=== PATIENT | male | born 1995 | race Caucasian/White ===

== ENCOUNTER 2017-07-04 22:44 | Emergency (ER) | payer OTHER ==
[~2017-07-04] VITALS: Ht 177.8 cm; Wt 93.2 kg
[2017-07-04 22:47] VITALS: BP 126/74
--- NOTE | 2017-07-04 22:54 | NUR ---
PT TAKEN TO BED 3
--- NOTE | 2017-07-04 23:00 | NUR ---
PT CAME IN C/O FEELING DEPRESSED AND ANXIOUS AND HAVING EPIGASTRIC PAIN 8/10 WHEN GETTING ANXIOUS. 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 PT SAID HE HAS BEEN SEEN BY THERAPIST AND HAS BEEN TAKING ZYPREXA, FLUOXETINE, AND LORAZEPAM. HOWEVER, HE FEELS MORE ANXIOUS SINCE YESTERDAY AND HEARING VOICES SAYING WHAT ARE YOU DOING. HE DENIES OF HEARING VOICES TO HARM HIMSELF OR OTHERS. A&OX4. RR EVEN AND UNLABORED. S1 AND S2 HEARD. VSS. AFEBRILE. CAP REFILLS WITHIN 3 SEC. NO ACUTE DISTRESS NOTED. ER MD MADE AWARE.
--- NOTE | 2017-07-04 23:02 | NUR ---
Dr. Coy evaluating patient at bedside.
[2017-07-04] MEDS ORDERED: LORazepam 2 MG/ML VIAL IM ONE (23:20)
--- NOTE | 2017-07-04 23:29 | NUR ---
ATIVAN ADMINISTERED ORDERED. WILL CONTINUE TO MONITOR.
--- NOTE | 2017-07-04 23:38 | NUR ---
PT STATED HE FEELS MUCH BETTER AFTER THE MEDICATION.
[2017-07-04 23:40] VITALS: BP 126/78
== END 2017-07-04 23:40 | disposition home or self-care (01) ==
LOC: MED 22:44
DX: F41.9 Anxiety disorder, unspecified (principal); F32.9 Major depressive disorder, single episode, unspecified; F25.9 Schizoaffective disorder, unspecified
CPT/HCPCS: 96372; 99284; J2060